=== PATIENT | male | born 1990 | race Caucasian/White ===

== ENCOUNTER 2017-01-13 03:38 | Emergency (ER) | payer MEDICAID ==
[~2017-01-13 03:38] MED LIST: ABILIFY15 MG; ADDERALL XR 2020 MG; CATAPRES0.1 MG; CLARITIN10 MG; COL-RITE100 MG; GLYCOLAX14 EA; STRATTERA40 MG; STRATTERA80 MG; TRAZODONE50 MG; TRILEPTAL150 MG
[2017-01-13] MEDS ORDERED: HALDOL5 MG/1 ML IJ (03:51)
[2017-01-13 04:42] LABS: BASO % 0.1 % (0-2); EOS % 0.5 % (0-7); EOSINOPHIL ABSOLUTE COUNT 0.1 tho/cmm (0.0-0.7); HCT-HEMATOCRIT 44.7 % (36.0-53.5); HGB-HEMOGLOBIN 15.5 gm/dl (13.5-17.0); IMMATURE GRANULOCYTES ABSOLUTE 0.03 tho/cmm (0-0.03); IMMATURE GRANULOCYTES PERCENT 0.3 % (0-0.3); LYMPH % 4.9 % (20-45); LYMPH ABSOLUTE COUNT 0.6 tho/cmm (0.8-4.5); MCHC MEAN CORPUSCULAR HGB CONC 34.7 % (32.0-36.0); MCV (MEAN CELL VOLUME) 86.6 fl (82.0-96.0); MEAN PLATELET VOLUME 9.2 cmc (9.4-12.4); MONOCYTE ABSOLUTE COUNT 0.7 tho/cmm (0.0-1.2); NEUTROPHILS % 88.2 % (40-80); PLATELET COUNT 274 tho/cmm (150-450); RED BLOOD COUNT 5.16 mil/cmm (4.40-5.70); RED CELL DISTRIBUTION WIDTH 12.8 % (12.4-16.4); WHITE BLOOD COUNT 11.3 tho/cmm (4.0-10.0)
[2017-01-13 04:57] LABS: URINE BILIRUBIN NEGATIVE (NEG); URINE BLOOD NEGATIVE (NEG); URINE GLUCOSE (UA) NEGATIVE (NEG); URINE KETONE NEGATIVE (NEG); URINE LEUKOCYTE ESTERASE POSITIVE (NEG); URINE NITRITE NEGATIVE (NEG); URINE PROTEIN MODERATE (NEG); URINE SPECIFIC GRAVITY 1.005 (1.003-1.030)
[2017-01-13 05:01] LABS: URINE APPEARANCE HAZY; URINE COLOR YELLOW
[2017-01-13 05:03] LABS: URINE RBC 0-3 /[HPF] (0-5); URINE WBC 15-20 /[HPF] (0-5)
[2017-01-13 05:04] LABS: URINE BACTERIA 1+; URINE EPITHELIAL CELLS 0-1 /[HPF] (0-10)
[2017-01-13 05:04] LABS: ALB/GLOB RATIO 0.8 (0.8-2.0); ALBUMIN 3.6 g/dl (3.5-5.0); ALKALINE PHOSPHATASE 91 U/L (33-138); ALT/SGPT 26 U/L (12-78); ANION GAP 11 mmol/L (0-20); AST/SGOT 19 U/L (10-40); BILIRUBIN,TOTAL 0.5 mg/dl (0.0-1.5); BLOOD UREA NITROGEN 16 mg/dl (6-24); CALCIUM 8.8 mg/dl (8.5-10.5); CARBON DIOXIDE-VENOUS 27 mmol/L (22-32); CHLORIDE 104 mmol/l (96-110); CREATININE 1.23 mg/dl (0.60-1.30); GLUCOSE 104 mg/dL (70-110); LIPASE 93 U/L (73-393); POTASSIUM 4.1 mmol/L (3.7-5.1); SODIUM 138 mmol/L (135-145); eGFR VALUE FOR BLACK >90 mL/Min
[2017-01-13] MEDS ORDERED: CIPRO500 M2 PO (07:06)
[2017-01-13] MEDS ORDERED: ZOFRAN4 M2 PO (07:06)
== END 2017-01-13 07:21 ==
LOC: EDMED 03:38
PROVIDERS: Emergency Medicine
DX: N39.0 Urinary tract infection, site not specified (principal); F90.9 Attention-deficit hyperactivity disorder, unspecified type; F31.9 Bipolar disorder, unspecified; F91.3 Oppositional defiant disorder; F17.210 Nicotine dependence, cigarettes, uncomplicated; Z79.899 Other long term (current) drug therapy
CPT/HCPCS: J2270; J2405; J7030; Q9967